=== PATIENT | male | born 1955 | race Caucasian/White ===

== ENCOUNTER 2023-04-14 21:49 | Emergency (ER) | payer BC, OTHER ==
[~2023-04-14] VITALS: Ht 180.3 cm; Wt 89.8 kg
[2023-04-14 21:59] VITALS: BP_SYST 164
[2023-04-15] MEDS ORDERED: DIPH25CA83 PO (00:08)
[2023-04-15] MEDS ORDERED: PRED20TA PO (00:08)
[2023-04-15 00:19] VITALS: BP_SYST 164
== END 2023-04-15 00:19 | disposition home or self-care (01) ==
LOC: SED 21:49
DX: R21 Rash and other nonspecific skin eruption (principal); Z79.899 Other long term (current) drug therapy
CPT/HCPCS: 99283